=== PATIENT | male | born 1960 | race Caucasian/White ===

== ENCOUNTER 2017-06-10 08:44 | Outpatient (CLI) | payer BC ==
[2017-06-10 09:39] LABS: #Eosinphils 0.6 thou/uL (0.0-0.7); #Lymphocytes 1.3 thou/uL (1.20-3.40); #Monocytes 0.6 thou/uL (0.11-0.59); #Neutrophils 4.7 thou/uL (1.40-6.50); %Basophils 0.6 % (0.0-1.0); %Eosinophils 8.7 % (0.0-10.0); %Lymphocytes 17.3 % (21.0-51.0); %Monocytes 8.6 % (0.0-10.0); Hematocrit 42.3 % (42.0-52.0); Mean Platelet Volume 7.9 fL (7.4-10.4); Red Blood Cell (RBC) Count 4.29 mill/uL (4.70-6.10); White Blood Cell (WBC) Count 7.3 thou/uL (4.8-10.8)
[2017-06-10 10:05] LABS: Anion Gap 13 mmol/L (10-20); BUN (Urea Nitrogen) 15 mg/dL (8.4-25.7); Calc. Creatinine Clearance 0 mL/min (70-130); Calcium 9.4 mg/dL (7.8-10.44); Carbon Dioxide 23 mmol/L (22-29); Chloride 105 mmol/L (98-107); Estimated GFR-MDRD 82
== END 2017-06-10 08:45 | disposition home or self-care (01) ==
LOC: LABBT 08:44
PROVIDERS: ATTEND Orthopaedic Surgery
DX: Z01.812 Encounter for preprocedural laboratory examination (principal); M17.0 Bilateral primary osteoarthritis of knee
CPT/HCPCS: 80048; 85025; 85610; 86850; 86900; 86901; 87081

== ENCOUNTER 2017-06-10 09:00 | Inpatient (IN) | payer BC ==
[2017-06-10 08:59] VITALS: BMI 40.8
[2017-06-17] MEDS ORDERED: CEFAZOLIN/Water 2 GM/20 ML SYRINGE ONE (06:08)
[2017-06-17] MEDS ORDERED: Tranexamic Acid 1,000 MG/100 ML BAG ONE ×2 (06:08→10:12)
[2017-06-17] MEDS ORDERED: Fentanyl 100 MCG/2 ML VIAL ONE ×5 (06:22→10:37)
[2017-06-17] MEDS ORDERED: Midazolam HCl 2 mg/2 ml Vial ONE ×3 (06:22→08:16)
[2017-06-17] MEDS ORDERED: Bupivacaine/Epinephrine 0.25% 30 ML VIAL ONE (06:46)
[2017-06-17] MEDS ORDERED: Eucerin (Mineral Oil/Petrolatum,White) 30 gm Jar TOP PRN (07:00)
[2017-06-17] MEDS ORDERED: Zolpidem Tartrate 5 MG TAB PO PRN ×3 (07:00→10:10)
[2017-06-17] MEDS ORDERED: Bupivacaine 0.25% 10 ML VIAL EPIDURAL PRN (07:00)
[2017-06-17] MEDS ORDERED: Fentanyl/Bupivacaine 250 ML in Premix Bag 1 BAG EPIDURAL SCH (07:00)
[2017-06-17] MEDS ORDERED: diphenhydrAMINE 50 MG/ML VIAL IVP PRN (07:00)
[2017-06-17] MEDS ORDERED: diphenhydrAMINE 50 MG/ML VIAL IM PRN (07:00)
[2017-06-17] MEDS ORDERED: Ondansetron HCl/PF 4 MG/2 ML Vial IVP PRN ×3 (07:00→10:10)
[2017-06-17] MEDS ORDERED: Naloxone HCl 0.4 mg/ml Vial IVP PRN (07:00)
[2017-06-17] MEDS ORDERED: HYDROcodone/Acetaminophen 5/325 mg Tablet PO PRN (07:00)
[2017-06-17] MEDS ORDERED: Naloxone HCl 0.4 mg/ml Vial IV PRN (07:00)
[2017-06-17] MEDS ORDERED: traMADol HCl 50 MG TAB PO PRN ×3 (07:00→10:10)
[2017-06-17] MEDS ORDERED: Promethazine HCl 25 MG/ML VIAL IM PRN ×3 (07:00→10:10)
[2017-06-17] MEDS ORDERED: diphenhydrAMINE 25 MG CAP PO PRN ×3 (07:00→10:10)
[2017-06-17] MEDS ORDERED: Promethazine HCl 25 MG SUPP PR PRN (07:00)
[2017-06-17] MEDS ORDERED: Ropivacaine 0.5% HCl/PF (150 MG/30 ML VIAL) ONE (07:19)
[2017-06-17] MEDS ORDERED: Diprivan 20 ML ONE (08:16)
[2017-06-17] MEDS ORDERED: Fentanyl/Bupivacaine 250 ML EPIDURAL ONE (10:05)
[2017-06-17] MEDS ORDERED: Acetaminophen 325 MG TAB PO PRN ×2 (10:10)
[2017-06-17] MEDS ORDERED: Fentanyl 100 MCG/2 ML VIAL SLOW IVP PRN ×2 (10:10)
[2017-06-17] MEDS ORDERED: HYDROcodone/Acetaminophen 10/325 mg Tablet PO PRN ×2 (10:10)
[2017-06-17] MEDS ORDERED: Acetaminophen 500 MG TAB PO PRN (10:10)
[2017-06-17] MEDS ORDERED: Ketorolac Tromethamine 30 MG/ML VIAL ONE (10:12)
[2017-06-17] MEDS ORDERED: Tranexamic Acid 1,000 MG in Sodium Chloride 0.9% 100 ML IVPB SCH (10:15)
[2017-06-17] MEDS ORDERED: Sodium Chloride 0.9% 1,000 ML IV SCH (10:15)
[2017-06-17] MEDS ORDERED: Bupivacaine 0.25% HCL 30 ML VIAL ONE (10:53)
--- NOTE | 2017-06-17 11:24 | RAD ---
RADIOGRAPH RIGHT KNEE TWO VIEWS: Date: 06-17-17 History: 56-year-old female status post knee surgery. Comparison: None. FINDINGS: Soft tissue edema, swelling, and extensive subcutaneous emphysema at the anterior aspect of the knee. Resurfacing changes of the posterior aspect of the patella. Metallic prostheses cover the articular surfaces of the tibial plateau and distal femur. No skin taz or drainage catheters. IMPRESSION: Immediately status post total right knee replacement arthroplasty. POS: SHAI
--- NOTE | 2017-06-17 11:26 | RAD ---
RADIOGRAPH LEFT KNEE TWO VIEWS: Date: 06-17-17 History: 66-year-old male status post left knee surgery. Comparison: None. FINDINGS: Metallic prostheses cover the articular surfaces of the distal femur and tibial plateau. Resurfacing changes of the posterior aspect of the patella. Soft tissue swelling and edema anteriorly. Subcutaneo us emphysema anteriorly. IMPRESSION: Immediately status post total left knee replacement arthroplasty. POS: JAYA
--- NOTE | 2017-06-17 12:20 | OP ---
DATE OF PROCEDURE: 06/17/2017 PREOPERATIVE DIAGNOSIS: Bilateral degenerative joint disease of the knee. POSTOPERATIVE DIAGNOSES: Bilateral degenerative joint disease of the knee. SURGEON: Ky Moore M.D. DIRECTOR SUPPLY CHAIN: Bridger Lorenzana PA-C. BLOOD LOSS: Minimal. TOURNIQUET TIME: 57 on the left, 62 on the right. IMPLANTS USED: Left knee; 5 femur, 5 tibia, 9 mm CS X3 polyethylene, and A35 patella all by [employer] knee. Right side, also [employer] knee, 5 femur, 5 tibia, 11 mm CS X3 polyethylene, and A35 patella. TITLE OF PROCEDURE: Left total left knee and right total knee. PROCEDURE IN DETAIL: After informed consent was obtained in the preoperative holding area. The george ent was taken to the operative suite where general anesthesia was induced. Once adequate level of ge neral anesthesia was obtained, the patient was positioned and a well-padded tourniquet was placed areli und the left proximal thigh. The left lower extremity was then prepped and draped in the usual steri le fashion. Prior to exsanguination, a time out was called and all members of the surgical team agre ed upon site, surgeon, and patient. The extremity was then exsanguinated and the tourniquet was rais ed. A midline longitudinal incision was then made directly over the patella extending two fingerbrea dths above the superior pole of the patella and two fingerbreadths inferior to the inferior patellar pole of the patella. Deeper subcutaneous layers were dissected sharply and local bleeding was contro lled with Bovie electrocautery. A quad tendon longitudinal split was then made sharply and a median parapatellar arthrotomy was carried out both sharp and with Bovie electrocautery, carried down to one fingerbreadth medial to the tibial tubercle. The knee was then placed into flexion and the patella was everted nicely, and a copious fat pad ectomy was performed allowing for greater exposure of the t ibia. The computer-assisted distal femoral fiducial was then placed and pinned firmly, and the dista l femoral cutting guide was pinned firmly into place. The oscillating saw was then used to remove th e appropriate amount of bone. The 4-in-1 cutting block was then placed on the distal femur and the o scillating saw was used to remove the appropriate amount of bone off of the anterior, posterior, and chamfer cuts. After completion of bone cuts, the anterior cruciate ligament was resected sharply and the posterior cruciate ligament retractor was placed and the tibia was subluxed for better exposure. Partial meniscectomies were carried out, and the tibial computer-assisted fiducial was pinned, and the cutting guide was placed. Oscillating saw was then used to remove the bone with Hohmann retracto rs used to take care and protect the collateral ligaments. After the tibial resection was performed, a laminar terra cotta setter was placed in between the freshened bone cuts. The knee placed at 90 degrees and further bilateral meniscectomies were carried out, and the curved osteotome and curettage was used t o remove any excess bone spurs in the posterior compartment. Exparel was then injected into the post erior capsule, galina-articular synovia, pre-patella synovia, and musculature surrounding the capsule. The trial femoral component, tibial baseplate were placed with the appropriate polyethylene trial in sert with an appropriate polyethylene spacer and patellar button. The knee was taken through full ra nge of motion with flexion and extension from 0-90 degrees and patellar broach squarely in the troch juan without any squinting or subluxation noted. The knee was also stable to varus and valgus stressi ng at 0, 15, 45, and 90 degrees of flexion. The drawer was negative. All trial components were then removed and the keel punch was used to provide the appropriate defect in the tibia with a mallet. Th e freshened bone cuts were copiously irrigated with pulsatile lavage of about 1-1/2 liters to remove all excess debris. The freshened bone cuts were then dried and with suction and lap sponge. The kne e was placed in flexion and retractors were placed to provide access to all bone cuts. Tobramycin im pregnated methyl methacrylate cement was then placed on the freshened bone cuts and implants which we re malleted firmly into place. Curettage and Tyler elevators were used to remove any excess bone esme ent. The knee was placed into full extension and the patellar button was placed under compression, a nd the cement was allowed to cure. Once completed, the components were again taken through full rang e of motion and copious irrigation of the knee was carried out with another liter of normal saline. All components were inspected fully with full range of motion and varus and valgus stressing. There w as no laxity noted and full extension was observed clinically. Primary closure was accomplished with #2 interrupted Vicryl stitch of the arthrotomy defect. This was oversewn with a #2 running Quill ba rbed stitch. The gravitational platelet system was then injected into the arthrotomy prior to closur e. The subcutaneous layer was then closed with a running 0 barbed Monocryl stitch and skin closure a ccomplished with a running subcuticular 3-0 Monocryl barbed Quill stitch and augmented with cement on the skin. Tourniquet was lowered. Good spontaneous return of distal pulses was noted clinically an d a sterile dressing was applied to the incision. The procedure was terminated without any complicat ions. The patient was awakened in the operative suite and the tourniquet was removed. After informed consent was obtained in the preoperative holding area. The patient was taken to the o perative suite where general anesthesia was induced. Once adequate level of general anesthesia was o btained, the patient was positioned and a well-padded tourniquet was placed around the right proximal thigh. The right lower extremity was then prepped and draped in the usual sterile fashion. Prior t o exsanguination, a time out was called and all members of the surgical team agreed upon site, surgeo n, and patient. The extremity was then exsanguinated and the tourniquet was raised. A midline longi tudinal incision was then made directly over the patella extending two fingerbreadths above the super ior pole of the patella and two fingerbreadths inferior to the inferior patellar pole of the patella. Deeper subcutaneous layers were dissected sharply and local bleeding was controlled with Bovie elec trocautery. A quad tendon longitudinal split was then made sharply and a median parapatellar arthrot tiffani was carried out both sharp and with Bovie electrocautery, carried down to one fingerbreadth media l to the tibial tubercle. The knee was then placed into flexion and the patella was everted nicely, and a copious fat pad ectomy was performed allowing for greater exposure of the tibia. The computer- assisted distal femoral fiducial was then placed and pinned firmly, and the distal femoral cutting gu sofi was pinned firmly into place. The oscillating saw was then used to remove the appropriate amount of bone. The 4-in-1 cutting block was then placed on the distal femur and the oscillating saw was u sed to remove the appropriate amount of bone off of the anterior, posterior, and chamfer cuts. After completion of bone cuts, the anterior cruciate ligament was resected sharply and the posterior cruci ate ligament retractor was placed and the tibia was subluxed for better exposure. Partial meniscecto mies were carried out, and the tibial computer-assisted fiducial was pinned, and the cutting guide wa s placed. Oscillating saw was then used to remove the bone with Hohmann retractors used to take care and protect the collateral ligaments. After the tibial resection was performed, a laminar terra cotta setter was placed in between the freshened bone cuts. The knee placed at 90 degrees and further bilateral m eniscectomies were carried out, and the curved osteotome and curettage was used to remove any excess bone spurs in the posterior compartment. Exparel was then injected into the posterior capsule, galina- articular synovia, pre-patella synovia, and musculature surrounding the capsule. The trial femoral c omponent, tibial baseplate were placed with the appropriate polyethylene trial insert with an appropr iate polyethylene spacer and patellar button. The knee was taken through full range of motion with f lexion and extension from 0-90 degrees and patellar broach squarely in the trochlea without any squin ting or subluxation noted. The knee was also stable to varus and valgus stressing at 0, 15, 45, and 90 degrees of flexion. The drawer was negative. All trial components were then removed and the keel punch was used to provide the appropriate defect in the tibia with a mallet. The freshened bone cuts were copiously irrigated with pulsatile lavage of about 1-1/2 liters to remove all excess debris. T he freshened bone cuts were then dried and with suction and lap sponge. The knee was placed in flexi on and retractors were placed to provide access to all bone cuts. Tobramycin impregnated methyl meth acrylate cement was then placed on the freshened bone cuts and implants which were malleted firmly in to place. Curettage and Tyler elevators were used to remove any excess bone cement. The knee was pl aced into full extension and the patellar button was placed under compression, and the cement was all owed to cure. Once completed, the components were again taken through full range of motion and copio us irrigation of the knee was carried out with another liter of normal saline. All components were i nspected fully with full range of motion and varus and valgus stressing. There was no laxity noted an d full extension was observed clinically. Primary closure was accomplished with #2 interrupted Vicry l stitch of the arthrotomy defect. This was oversewn with a #2 running Quill barbed stitch. The gra vitational platelet system was then injected into the arthrotomy prior to closure. The subcutaneous layer was then closed with a running 0 barbed Monocryl stitch and skin closure accomplished with a ru nning subcuticular 3-0 Monocryl barbed Quill stitch and augmented with cement on the skin. Tournique t was lowered. Good spontaneous return of distal pulses was noted clinically and a sterile dressing was applied to the incision. The procedure was terminated without any complications. The patient wa s awakened in the operative suite and the tourniquet was removed, and the patient was taken to the re covery room in stable condition.
[2017-06-17] MEDS: Ketorolac Tromethamine 30 MG/ML VIAL IVP SCH ×3 (13:38→22:40)
[2017-06-17] MEDS: CEFAZOLIN/Water 2 GM/20 ML SYRINGE SLOW IVP SCH ×2 (15:23→20:51)
[2017-06-17] MEDS ORDERED: Propofol 200 MG/20 ML VIAL ONE (16:49)
[2017-06-17] MEDS ORDERED: Lidocaine 1% PF 5 ML VIAL ONE (16:49)
[2017-06-17] MEDS ORDERED: PHENYLEPHRINE-NS 100 MCG/ML 10 ML SYRINGE ONE (16:49)
[2017-06-17 18:52] LABS: Anion Gap 11 mmol/L (10-20); BUN (Urea Nitrogen) 19 mg/dL (8.4-25.7); Calc. Creatinine Clearance 128 mL/min (70-130); Calcium 8.6 mg/dL (7.8-10.44); Carbon Dioxide 26 mmol/L (22-29); Chloride 102 mmol/L (98-107); Estimated GFR-MDRD 62
[2017-06-17] MEDS: HYDROcodone/Acetaminophen 5/325 mg Tablet PO PRN ×2 (19:25→23:48)
[2017-06-17] MEDS: Sodium Chloride 0.9% 1,000 ML IV SCH (19:51)
[2017-06-17] MEDS: Aspirin 325 MG TAB PO SCH (20:51)
[2017-06-17] MEDS ORDERED: Senokot S 8.6-50 MG TAB PO SCH (21:00)
[2017-06-17] MEDS ORDERED: Aspirin 325 MG TAB PO SCH (21:00)
[2017-06-17] MEDS ORDERED: Ferrous Gluconate 324 MG TAB PO SCH (21:00)
[2017-06-17] MEDS: traMADol HCl 50 MG TAB PO PRN (21:04)
--- NOTE | 2017-06-17 21:52 | HP ---
REASON FOR ADMISSION: Bilateral knee pain, status post left TKA and right TKA. RECENT FOR CONSULT: Medical management. CONSULTING PHYSICIAN: Dr. Moore. BRIEF HOSPITAL COURSE: This is a 56-year-old pleasant gentleman who was apparently in usual state of health, came into the hospital for his surgery because of bilateral knee pain. He had both the knee s replaced and he has been admitted to the hospital for observation and had been consulted for medica l management. At the time of my interview, he denies any chest pain, shortness of breath, diarrhea, dysuria, or polyuria. He says both the knee pain, pain management control is good, on oral hydrocodo ne. PAST MEDICAL HISTORY: Significant for hypertension. PAST SURGICAL HISTORY: Right shoulder surgery and both the knee surgeries now. SOCIAL HISTORY: Does not smoke, drink, or do recreational drugs. FAMILY HISTORY: Negative for diabetes and hypertension. MEDICATIONS: Lisinopril 20 mg p.o. daily, atenolol 100 mg p.o. daily and for the rest, please see MARGOTH Kent. ALLERGIES: No known drug allergies. REVIEW OF SYSTEMS: Significant for bilateral knee pain, otherwise no fever, no chills, no headache, no eye pain, no hearing loss, no appetite, no latencies. No cough, no chest pain, diarrhea, dysuria, or polyuria. No memory or mood changes. No neck pain. PHYSICAL EXAMINATION: VITAL SIGNS: Blood pressure is 100/50, pulse is 68, afebrile, breathing comfortably on room air. GENERAL: The patient is lying in bed in no apparent distress. HEENT: Atraumatic, normocephalic. Pupils equally round, react to light. Extraocular movements inta ct. Mucous membranes moist. NECK: Supple. No JVD. CHEST: Breath sounds heard. No rales or rhonchi. HEART: S1, S2. No clicks, murmurs, or gallops. ABDOMEN: Soft. EXTREMITIES: Both the knees are in dressing. NEUROLOGIC: Alert, awake, oriented. No cranial deficits. No sensorimotor deficits. LABORATORY DATA: WBC count is 7.3, hemoglobin is 14, potassium is 4.5. Creatinine is 0.9. ASSESSMENT AND PLAN: 1. Bilateral degenerative disease of the knees, status post left total knee arthroplasty and right t otal knee arthroplasty for pain management, physical therapy, and follow primary's plan. 2. High blood pressure. We will continue home medications with parameters. We will optimize as nee ded as the clinical course evolves. 3. Morbid obesity with a BMI of 40. Patient has been advised to lose weight. 4. Sequential compression devices for deep venous thrombosis prophylaxis. I will work with Dr. Ritu escoto in further caring for the patient.
[2017-06-17] MEDS ORDERED: Morphine 4 MG/ML VIAL SLOW IVP PRN (22:05)
[2017-06-17] MEDS ORDERED: Morphine 4 MG/ML VIAL SLOW IVP SCH (22:15)
[2017-06-18] MEDS: Sodium Chloride 0.9% 1,000 ML IV SCH ×2 (02:49→10:46)
[2017-06-18] MEDS: traMADol HCl 50 MG TAB PO PRN ×2 (02:50→10:40)
[2017-06-18] MEDS: HYDROcodone/Acetaminophen 5/325 mg Tablet PO PRN ×2 (04:01→08:10)
[2017-06-18 05:26] LABS: Hematocrit 37.5 % (42.0-52.0); Mean Platelet Volume 8.1 fL (7.4-10.4); Red Blood Cell (RBC) Count 3.75 mill/uL (4.70-6.10); White Blood Cell (WBC) Count 8.3 thou/uL (4.8-10.8)
[2017-06-18] MEDS: Ketorolac Tromethamine 30 MG/ML VIAL IVP SCH ×3 (05:45→17:40)
[2017-06-18] MEDS: Ferrous Gluconate 324 MG TAB PO SCH ×2 (08:08→17:41)
[2017-06-18] MEDS: Aspirin 325 MG TAB PO SCH ×2 (08:09→20:36)
[2017-06-18] MEDS: Atenolol 50 MG TAB PO SCH (08:09)
[2017-06-18] MEDS: Senokot S 8.6-50 MG TAB PO SCH ×2 (08:10→20:36)
[2017-06-18] MEDS: Lisinopril 20 MG TAB PO SCH (08:10)
[2017-06-18] MEDS: Multivitamin W/ Minerals 1 TAB PO SCH (08:10)
[2017-06-18] MEDS ORDERED: Lisinopril 20 MG TAB PO SCH (09:00)
[2017-06-18] MEDS ORDERED: Multivitamin W/ Minerals 1 TAB PO SCH (09:00)
[2017-06-18] MEDS ORDERED: Atenolol 50 MG TAB PO SCH (09:00)
[2017-06-18] MEDS ORDERED: Fentanyl 5000 MCG/250 ML CADD IV PRN (10:45)
[2017-06-18] MEDS: Acetaminophen 1,000 MG in Premix Bag 1 BAG IVPB SCH ×2 (14:11→20:35)
--- NOTE | 2017-06-18 14:48 | PDOC.PN ---
- Subjective Encounter Start Date: 06/18/17 Encounter Start Time: 08:20 -: old records requested/rev Pt seen and examined, chart reviewed in its entirety. This is my first visit with this patient. Admitted yesterday, post op BTKA. We were consulted for medial management of HTN, Pt intially seen last night by Dr Barrios Pt had a bad,night, pain uncontrolled, apparently epidural catheter not functioning. 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 BP low normal this morning, next reading at 0800 better. No F/C, no N/V/D/C, no CP, no SOB 10 point ROS performed and neg for all systems except as per HPI - Objective Resuscitation Status: FULL MAR Reviewed: Yes Vital Signs & Weight: Vital Signs (12 hours) Temp Pulse Resp BP Pulse Ox 06/18/17 11:10 98.0 F 67 16 108/69 96 06/18/17 08:09 81 06/18/17 08:00 98.1 F 70 20 96 06/18/17 07:40 98.1 F 70 20 117/73 96 06/18/17 05:51 95 06/18/17 04:07 98.3 F 81 18 104/67 91 L Weight Admit Weight 285 lb Weight 285 lb I&O: 06/17/17 06/18/17 06/19/17 06:59 06:59 06:59 Intake Total 2320 Output Total 1100 Balance 1220 Result Diagrams: 06/18/17 04:45 06/17/17 18:23 Radiology Reviewed by me: Yes EKG Reviewed by me: Yes Phys Exam - Physical Examination Constitutional: NAD HEENT: PERRLA, moist MMs, sclera anicteric, oral pharynx no lesions Neck: no nodes, no JVD, supple, full ROM Respiratory: no wheezing, no rales, no rhonchi, clear to auscultation bilateral Cardiovascular: RRR, no significant murmur, no rub Gastrointestinal: soft, non-tender, no distention, positive bowel sounds Musculoskeletal: no edema, pulses present Neurological: non-focal, normal sensation, moves all 4 limbs Lymphatic: no nodes Psychiatric: normal affect, A&O x 3 Skin: no rash, normal turgor, cap refill <2 seconds Dx/Plan (1) HTN (hypertension) Code(s): I10 - ESSENTIAL (PRIMARY) HYPERTENSION Status: Chronic Qualifiers: Hypertension type: essential hypertension Qualified Code(s): I10 - Essential (primary) hypertension Comment: continue meds (2) Postoperative pain of left knee Code(s): M25.562 - PAIN IN LEFT KNEE; G89.18 - OTHER ACUTE POSTPROCEDURAL PAIN Status: Acute (3) Postoperative pain of right knee Code(s): M25.561 - PAIN IN RIGHT KNEE; G89.18 - OTHER ACUTE POSTPROCEDURAL PAIN Status: Acute (4) Hyperglycemia Code(s): R73.9 - HYPERGLYCEMIA, UNSPECIFIED Status: Acute Comment: likely stress induced, no intervention yet (5) S/P total knee arthroplasty Code(s): Z96.659 - PRESENCE OF UNSPECIFIED ARTIFICIAL KNEE JOINT Status: Acute Qualifiers: Laterality: bilateral Qualified Code(s): Z96.653 - Presence of artificial knee joint, bilateral - Plan cont current plan of care, PT/OT, out of bed/ambulate * .
[2017-06-19] MEDS: Ketorolac Tromethamine 30 MG/ML VIAL IVP SCH ×4 (00:55→17:44)
[2017-06-19] MEDS: Acetaminophen 1,000 MG in Premix Bag 1 BAG IVPB SCH ×4 (01:01→21:42)
[2017-06-19 05:19] LABS: Hematocrit 36.1 % (42.0-52.0); Mean Platelet Volume 8.3 fL (7.4-10.4); Red Blood Cell (RBC) Count 3.55 mill/uL (4.70-6.10); White Blood Cell (WBC) Count 8.9 thou/uL (4.8-10.8)
[2017-06-19] MEDS: Aspirin 325 MG TAB PO SCH ×2 (08:59→21:43)
[2017-06-19] MEDS: Ferrous Gluconate 324 MG TAB PO SCH ×2 (08:59→17:44)
[2017-06-19] MEDS: Senokot S 8.6-50 MG TAB PO SCH ×2 (08:59→21:43)
[2017-06-19] MEDS: Atenolol 50 MG TAB PO SCH (09:00)
[2017-06-19] MEDS: Lisinopril 20 MG TAB PO SCH (09:00)
[2017-06-19] MEDS: Multivitamin W/ Minerals 1 TAB PO SCH (09:00)
--- NOTE | 2017-06-19 16:19 | PDOC.PN ---
- Subjective Encounter Start Date: 06/19/17 Encounter Start Time: 16:17 Mr. Montelongo was seen today in follow-up of hypertension and bilateral knee replacements. He does not have any complaints. He denies chest pain or shortness of breath. - Objective MAR Reviewed: Yes Vital Signs & Weight: Vital Signs (12 hours) Temp Pulse Resp BP Pulse Ox 06/19/17 11:25 97.6 F 66 12 139/88 97 06/19/17 09:00 75 06/19/17 08:00 98.5 F 75 16 97 06/19/17 07:20 98.5 F 75 16 109/70 97 06/19/17 04:36 98.5 F 73 18 108/70 95 Weight Admit Weight 285 lb Weight 285 lb I&O: 06/18/17 06/19/17 06/20/17 06:59 06:59 06:59 Intake Total 2320 2897 Output Total 1100 1575 Balance 1220 1322 Result Diagrams: 06/19/17 04:41 06/17/17 18:23 Phys Exam - Physical Examination HEENT: PERRLA Respiratory: no wheezing, no rales, no rhonchi, clear to auscultation bilateral Cardiovascular: RRR, no significant murmur Gastrointestinal: soft, non-tender, positive bowel sounds Musculoskeletal: no edema Dx/Plan (1) S/p total knee replacement, bilateral Code(s): Z96.653 - PRESENCE OF ARTIFICIAL KNEE JOINT, BILATERAL Status: Acute (2) HTN (hypertension) Code(s): I10 - ESSENTIAL (PRIMARY) HYPERTENSION Status: Chronic Qualifiers: Hypertension type: essential hypertension Qualified Code(s): I10 - Essential (primary) hypertension Comment: continue meds - Plan * HTN- blood pressure is stable on Lisinopril and Atenolol * S/P bilateral Knee replacement- continue PT/OT. * Symptom control
[2017-06-19] MEDS ORDERED: Acetaminophen 325 MG TAB PO PRN (18:00)
[2017-06-19] MEDS ORDERED: Acetaminophen 500 MG TAB PO PRN (20:00)
[2017-06-20] MEDS: Ketorolac Tromethamine 30 MG/ML VIAL IVP SCH ×3 (00:01→11:39)
[2017-06-20] MEDS: Acetaminophen 1,000 MG in Premix Bag 1 BAG IVPB SCH ×3 (02:27→13:24)
[2017-06-20 05:40] LABS: Hematocrit 32.2 % (42.0-52.0); Mean Platelet Volume 8.3 fL (7.4-10.4); Red Blood Cell (RBC) Count 3.22 mill/uL (4.70-6.10); White Blood Cell (WBC) Count 7.8 thou/uL (4.8-10.8)
[2017-06-20] MEDS: Multivitamin W/ Minerals 1 TAB PO SCH (08:55)
[2017-06-20] MEDS: Senokot S 8.6-50 MG TAB PO SCH (08:55)
[2017-06-20] MEDS: Ferrous Gluconate 324 MG TAB PO SCH (08:55)
[2017-06-20] MEDS: Aspirin 325 MG TAB PO SCH (08:55)
[2017-06-20] MEDS: Atenolol 50 MG TAB PO SCH (08:56)
[2017-06-20] MEDS: Lisinopril 20 MG TAB PO SCH (08:56)
[2017-06-20] MEDS ORDERED: traMADol HCl 50 MG TAB PO PRN ×4 (11:09→11:26)
[2017-06-20] MEDS ORDERED: HYDROcodone/Acetaminophen 10/325 mg Tablet PO PRN ×4 (11:22→11:27)
--- NOTE | 2017-06-20 11:35 | PDOC.PN ---
- Subjective Encounter Start Date: 06/20/17 Encounter Start Time: 11:33 Mr. Montelongo was seen today in follow-up of bilateral knee replacements, and hypertension. He denies chest pain or difficulty breathing. He believes his blood pressure was elevated this morning, because he had not yet had his regular blood pressure medication yet. - Objective MAR Reviewed: Yes Vital Signs & Weight: Vital Signs (12 hours) Temp Pulse Resp BP BP Pulse Ox 06/20/17 08:56 80 181/78 H 06/20/17 07:44 98.1 F 79 14 181/78 H 91 L 06/20/17 03:53 98.4 F 75 16 134/78 95 06/19/17 23:46 98.3 F 87 16 131/74 94 L Weight Admit Weight 285 lb Weight 285 lb I&O: 06/19/17 06/20/17 06/21/17 06:59 06:59 06:59 Intake Total 2897 2510 Output Total 1575 575 Balance 1322 1935 Result Diagrams: 06/20/17 04:19 06/17/17 18:23 Phys Exam - Physical Examination HEENT: PERRLA Respiratory: no wheezing, no rales, no rhonchi, clear to auscultation bilateral Cardiovascular: RRR, no significant murmur Gastrointestinal: soft, non-tender, positive bowel sounds Musculoskeletal: edema present + mild edema around the knees, and lower thighs Dx/Plan (1) S/p total knee replacement, bilateral Code(s): Z96.653 - PRESENCE OF ARTIFICIAL KNEE JOINT, BILATERAL Status: Acute (2) HTN (hypertension) Code(s): I10 - ESSENTIAL (PRIMARY) HYPERTENSION Status: Chronic Qualifiers: Hypertension type: essential hypertension Qualified Code(s): I10 - Essential (primary) hypertension Comment: continue meds - Plan * HTN- blood pressure was elevated this morning, but is now trending down after his medications were administered * OA - s/p bilateral knee replacement- continue PT/ OT- possible discharge today.
[2017-06-20 12:32] VITALS: BP 158/81; TEMP 98.2
== END 2017-06-20 13:56 | disposition home or self-care (01) | DRG 462 ==
LOC: SURG A 06-17 05:37 → SJJU 06-17 12:32
PROVIDERS: ADMIT Orthopaedic Surgery; ATTEND Orthopaedic Surgery
PROC: 0SRD0J9 Replacement of Left Knee Joint with Synthetic Substitute, Cemented, Open Approach (ICD-10-PCS; principal; 2017-06-17)
PROC: 0SRC0J9 Replacement of Right Knee Joint with Synthetic Substitute, Cemented, Open Approach (ICD-10-PCS; 2017-06-17)
DX: M17.0 Bilateral primary osteoarthritis of knee (principal); Z68.41 Body mass index [BMI] 40.0-44.9, adult; I10 Essential (primary) hypertension; E66.01 Morbid (severe) obesity due to excess calories; R73.9 Hyperglycemia, unspecified; G89.18 Other acute postprocedural pain
CPT/HCPCS: 36415; 80048; 85027; A4216; C1713; C1776; G8978-GP-CL; G8979-GP-CJ; G8987-GO-CK; G8988-GO-CK; G8989-GO-CK; J0131; J1885; J2001; J2250; J2270; J2704; J2795; J3010; J3370; J7050; S0020

== ENCOUNTER 2018-05-12 10:05 | Outpatient (CLI) | payer OTHER ==
--- NOTE | 2018-05-12 10:48 | RAD ---
TWO VIEWS LEFT KNEE: Comparison: 06-17-17 History: [facility] exam with left knee pain. FINDINGS: Two views of the left knee shows the patient to be status post left knee arthroplasty without perihil ar lucency or fracture. No knee effusion is seen. IMPRESSION: Status post left knee arthroplasty without evidence of acute osseous abnormality. POS: [facility]
== END 2018-05-12 10:06 | disposition home or self-care (01) ==
LOC: BICRAD 10:05
PROVIDERS: ATTEND Internal Medicine
DX: M25.562 Pain in left knee (principal); Z96.651 Presence of right artificial knee joint